=== PATIENT | female | born 1935 | race Caucasian/White ===

== ENCOUNTER 2024-10-09 09:40 | Day surgery (SDC) | payer OTHER, MEDICARE ==
[2024-10-06 14:53] VITALS: BMI 22.6
[2024-10-09] MEDS ORDERED: LIDOCAINE HCL 2% (20ML MULTI-DOSE VIAL) ONE (10:53)
[2024-10-09] MEDS ORDERED: BUPIVACAINE HCL/PF 0.25% (2.5MG/ML) 10 ML VIAL ONE (10:53)
[2024-10-09] MEDS ORDERED: DEXAMETHASONE SOD PHOSPHATE 4 MG/1 ML VIAL ONE (10:53)
[2024-10-09] MEDS ORDERED: CEFAZOLIN 1 GM/D5W 1 GRAM/50 ML BAG IVPB ONE (11:30)
[2024-10-09] MEDS ORDERED: MIDAZOLAM HCL 2 MG/2 ML SINGLE DOSE VIAL ONE (11:40)
[2024-10-09] MEDS ORDERED: PROPOFOL 20 ML ONE (11:40)
[2024-10-09] MEDS ORDERED: SUCCINYLCHOLINE CHLORIDE 200 MG/10 ML SYRINGE ONE (11:40)
[2024-10-09] MEDS ORDERED: LACTATED RINGERS SOLUTION 1,000 ML IV SCH (13:15)
[2024-10-09 13:28] VITALS: RESP 16
[2024-10-09 13:49] VITALS: TEMP 97.8
[2024-10-09 14:42] VITALS: BP 120/69; PULSE 75
== END 2024-10-09 14:15 | disposition home or self-care (01) ==
LOC: FASU 09:40
PROVIDERS: ATTEND Podiatrist
PROC: 0QBP0ZZ Excision of Left Metatarsal, Open Approach (ICD-10-PCS; principal; 2024-10-09 12:05)
DX: M21.622 Bunionette of left foot (principal)
CPT/HCPCS: 88304-TC; 88311-TC; 94760